=== PATIENT | male | born 1980 | race Caucasian/White ===

== ENCOUNTER 2019-10-26 09:32 | Outpatient (CLI) | payer SELFPAY | END 2019-10-26 09:33 | disposition critical access hospital (66) | LOC: EMS 09:32 | PROVIDERS: ATTEND Surgery | DX: R55 Syncope and collapse (principal) | CPT/HCPCS: A0425; A0427 ==

== ENCOUNTER 2019-10-26 09:57 | Emergency (ER) | payer SELFPAY ==
--- NOTE | 2019-10-26 10:10 | ED Physician Documentation ---
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 No: Headache Contributing factors: Decreased PO intake, Noxious stimulae (he had struck his fingers with tool and had pain and small lacerations. He was in bathroom, cleaning wounds and then to apply bandaid, but got feeling lightheaded. He fainted before he could sit down. Awoke with some pain in head and then developed pain left neck when getting up. Coworker had heard him fall and was to him in few seconds. Patient awoke and was conversant. No period of dazed nor confused. No seizure activity. Patient says he had not had any food nor fluid this morning, and had not had dinner the night prior.) Injury occurred: Head injury, Neck injury Similar symptoms before: Has not had sx before Recently seen: Not recently seen Review of Systems Constitutional: denies: Fever, Chills, Myalgias Eyes: denies: Decreased vision Nose: denies: Rhinorrhea / runny nose, Congestion Throat: denies: Sore throat Respiratory: denies: Cough GI: denies: Abdominal Pain, Nausea, Vomiting, Diarrhea Musculoskeletal: reports: Neck pain (after the fall). denies: Back pain Neurologic: reports: Syncope, Headache (after falling). denies: Focal weakness, Numbness Psychiatric: denies: Depressed, Suicidal PD PAST MEDICAL HISTORY - Past Medical History Cardiovascular: None Respiratory: None Neuro: None Endocrine/Autoimmune: None - Present Medications Home Medications: Ambulatory Orders Medication Instructions Recorded Confirmed Ibuprofen [Motrin] 600 mg PO TID PRN #25 tab 10/26/19 Tizanidine HCl 4 mg PO TID PRN #25 capsule 10/26/19 - Allergies Allergies/Adverse Reactions: Allergies Allergy/AdvReac Type Severity Reaction Status Date / Time No Known Drug Allergies Allergy Verified 10/26/19 10:02 PD ED PE NORMAL - Vitals Vital signs reviewed: Yes - General General: Alert and oriented X 3, No acute distress, Well developed/nourished - HEENT HEENT: PERRL, EOMI, Moist mucous membranes, Pharynx benign, Other (left side of head with local tenderness; no noted sweelling. ) - Neck Neck: Supple, no meningeal sign, No adenopathy, Other (tender left paracervical muscles and laterally toward side of neck. ) - Cardiac Cardiac: RRR, No murmur - Respiratory Respiratory: Clear bilaterally - Abdomen Abdomen: Soft, Non tender - Derm Derm: Normal color, Warm and dry - Extremities Extremities: Other (left index and middle fingers with superficial lacs over DIP joint. Good full ROM and extension against resistance. 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 No: Normal ST segments, ST elevation c/w ischemia, ST depression, Hyperacute T waves - Labs Labs: Laboratory Tests 10/26/19 10/26/19 10:30 10:37 WBC 11.7 H RBC 5.04 Hgb 13.7 L Hct 42.2 MCV 83.7 MCH 27.2 MCHC 32.5 RDW 17.1 H Plt Count 305 MPV 9.5 Neut # (Auto) 8.4 H Lymph # (Auto) 2.1 George # (Auto) 0.8 Eos # (Auto) 0.2 Baso # (Auto) 0.1 Absolute Nucleated RBC 0.00 Nucleated RBC % 0.0 Sodium 136 Potassium 3.9 Chloride 103 Carbon Dioxide 24 Anion Gap 9.0 BUN 18 Creatinine 0.7 Estimated GFR (MDRD) 126 Glucose 107 H Calcium 9.2 Magnesium 2.0 Total Bilirubin 0.4 AST 26 ALT 25 Alkaline Phosphatase 69 Total Protein 7.5 Albumin 4.4 Globulin 3.1 Albumin/Globulin Ratio 1.4 Lipase 44 PD MEDICAL DECISION MAKING - ED course Complexity details: reviewed results, considered differential, d/w patient Departure - Departure Disposition: 01 Home, Self Care Clinical Impression: Episode of syncope Qualifiers: Syncope type: vasovagal syncope Qualified Code(s): R55 - Syncope and collapse Finger contusion Qualifiers: Encounter type: initial encounter Finger: unspecified finger Damage to nail status: without damage Qualified Code(s): S60.00XA - Contusion of unspecified finger without damage to nail, initial encounter Neck muscle strain Qualifiers: Encounter type: initial encounter Qualified Code(s): S16.1XXA - Strain of muscle, fascia and tendon at neck level, initial encounter Condition: Stable Record reviewed to determine appropriate education?: Yes Instructions: ED Sprain Strain Neck, ED Syncope Vasovagal Prescriptions: Ibuprofen [Motrin] 600 mg PO TID PRN #25 tab PRN Reason: Pain Tizanidine HCl 4 mg PO TID PRN #25 capsule PRN Reason: Spasms Comments: Stay well-hydrated. Regular food intake. Your EKG and heart rhythm blood pressure and basic blood tests are okay here. I presume you had a brief drop in blood pressure related to under hydration associated with the injury to the hand response. Your pictures of your head and neck show normal bony structure and no signs of bleeding or fracture. You will still be having sore muscles of the neck from straining from falling. You can use some anti-inflammatory such as ibuprofen 3 times a day. Add muscle relaxant such as tizanidine if needed for stiffness and spasm. Heat and gentle range of motion. Add Tylenol if needed for pains. Activity as tolerated based on your sore neck and head. I would anticipate improvement of those over the next several days to week. Discharge Date/Time: 10/26/19 12:45
[2019-10-26] MEDS ORDERED: SODIUM CHLORIDE 0.9% 1,000 ML IV ONE (10:30)
[2019-10-26] MEDS ORDERED: KETOROLAC 30 MG/ML VIAL IVP STA (10:31)
[2019-10-26 10:45] LABS: BASOPHILS # (AUTO) 0.1 10^3/uL (0.0-0.1); BASOPHILS % (AUTO) 0.9 %; EOSINOPHILS # (AUTO) 0.2 10^3/uL (0.0-0.7); EOSINOPHILS % (AUTO) 1.3 %; HGB - HEMOGLOBIN 13.7 g/dL (14.0-18.0); LYMPHOCYTES # (AUTO) 2.1 10^3/uL (1.5-3.5); MEAN CORPUSCULAR HEMOGLOBIN 27.2 pg (27.0-31.0); MEAN CORPUSCULAR HGB CONC 32.5 g/dL (32.0-36.0); MEAN CORPUSCULAR VOLUME 83.7 fL (80.0-94.0); MEAN PLATELET VOLUME 9.5 fL (7.4-11.4); MONOCYTES # (AUTO) 0.8 10^3/uL (0.0-1.0); MONOCYTES % (AUTO) 6.9 %; NEUTROPHILS # (AUTO) 8.4 10^3/uL (1.5-6.6); NEUTROPHILS % (AUTO) 72.3 %; PLT - PLATELET COUNT 305 10^3/uL (130-450); RED BLOOD COUNT 5.04 10^6/uL (4.70-6.10); RED CELL DISTRIBUTION WIDTH 17.1 % (12.0-15.0); WHITE BLOOD COUNT 11.7 x10^3/uL (4.8-10.8)
[2019-10-26 10:59] LABS: ALBUMIN 4.4 g/dL (3.2-5.5); ALBUMIN/GLOBULIN RATIO 1.4 (1.0-2.2); BILIRUBIN,TOTAL 0.4 mg/dL (0.2-1.0); CALCIUM 9.2 mg/dL (8.5-10.3); CREATININE 0.7 mg/dL (0.6-1.2); TOTAL PROTEIN 7.5 g/dL (6.7-8.2)
--- NOTE | 2019-10-26 11:28 | CT Report ---
Reason: fall with head/neck injury Procedure Date: 10/26/2019 Accession Number: [id number] / [id number] Procedure: CT - HEAD WO CPT Code: Final Report FULL RESULT: EXAM: CT HEAD WITHOUT CONTRAST EXAM DATE: 10/26/2019 10:59 AM. CLINICAL HISTORY: 39-year-old male post fall, with head/neck injury. COMPARISON: None. TECHNIQUE: Multiaxial CT images were obtained from the foramen magnum to the vertex. Reformats: Sagittal and coronal. IV contrast: None. In accordance with CT protocol optimization, one or more of the following dose reduction techniques were utilized for this exam: automated exposure control, adjustment of mA and/or KV based on patient size, or use of iterative reconstructive technique. FINDINGS: Parenchyma: No intraparenchymal hemorrhage. No evidence of mass, midline shift, or CT findings of infarction. Gallardo-white differentiation is distinct. Extraaxial Spaces: Normal for age. No subdural or epidural collections identified. Ventricles: Normal in size and position. Sinuses and Orbits: Imaged paranasal sinuses, orbits, and mastoids show no significant abnormality. Bones: No evidence of fracture or calvarial defect. Other: None. IMPRESSION: Normal examination. No post-traumatic abnormality noted. RADIA
--- NOTE | 2019-10-26 11:42 | CT Report ---
Reason: fall with neck/head pain Procedure Date: 10/26/2019 Accession Number: [id number] / [id number] Procedure: CT - CERVICAL SPINE WO CPT Code: Final Report FULL RESULT: EXAM: CT CERVICAL SPINE WITHOUT CONTRAST DATE: 10/26/2019 10:59 AM. HISTORY: Fall with neck/head pain. COMPARISONS: None. TECHNIQUE: Thin-section axial images were acquired of the cervical spine without contrast. Post-processing: Coronal and sagittal reformats. Other: None. In accordance with CT protocol optimization, one or more of the following dose reduction techniques were utilized for this exam: automated exposure control, adjustment of mA and/or KV based on patient size, or use of iterative reconstructive technique. FINDINGS: Alignment: No scoliosis or spondylolisthesis. Bones: No fracture or bone lesion. Interspace Levels/Facets: C1-C2: Unremarkable. C2-C3: Unremarkable. C3-C4: Minimal bilateral uncovertebral joint hypertrophy. C4-C5: Moderate bilateral neural foraminal narrowing due to uncovertebral joint hypertrophy. C5-C6: Unremarkable. C6-C7: Moderate to severe bilateral neural foraminal narrowing due to uncovertebral joint hypertrophy. Significant loss of disk space height with endplate sclerosis and marginal spurring. C7-T1: Mild bilateral facet hypertrophy. Musculature: Normal. No fatty atrophy. Other: The paravertebral and prevertebral soft tissues are unremarkable. The lung apices are clear. IMPRESSION: 1. Moderate to severe degenerative change. 2. No fracture. RADIA
[2019-10-26] MEDS ORDERED: ACETAMINOPHEN 325 MG TABLET PO STA (12:26)
[2019-10-26] MEDS ORDERED: METHOCARBAMOL 500 MG TABLET PO STA (12:26)
[2019-10-26 12:39] VITALS: BP 137/90
== END 2019-10-26 12:45 | disposition home or self-care (01) ==
LOC: EDUNIT# → ED 09:57
DX: R55 Syncope and collapse (principal); S16.1XXA Strain of muscle, fascia and tendon at neck level, initial encounter; S09.90XA Unspecified injury of head, initial encounter; S61.211A Laceration without foreign body of left index finger without damage to nail, initial encounter; S61.213A Laceration without foreign body of left middle finger without damage to nail, initial encounter; W22.8XXA Striking against or struck by other objects, initial encounter; Y99.0 Civilian activity done for income or pay; W18.39XA Other fall on same level, initial encounter; Y93.E8 Activity, other personal hygiene
CPT/HCPCS: 36415; 70450; 72125; 80053; 83690; 83735; 85025; 93005; 96361; 96374; 99284; A9270

== ENCOUNTER 2020-01-30 14:29 | Outpatient (CLI) | payer SELFPAY | END 2020-01-30 14:30 | disposition home or self-care (01) | LOC: COV 14:29 | PROVIDERS: ATTEND Family Medicine | DX: R05 Cough (principal); R50.9 Fever, unspecified; Z20.828 Contact with and (suspected) exposure to other viral communicable diseases | CPT/HCPCS: 81599 ==